=== PATIENT | female | born 2005 | race Caucasian/White ===

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

== ENCOUNTER 2025-04-18 16:38 | Emergency (ER) | payer OTHER, SELFPAY ==
[2025-04-18 16:45] VITALS: BP 135/73; PULSE 85; RESP 16; TEMP 36.8; O2SAT 97
--- NOTE | 2025-04-18 17:00 | ED_ITS ---
HPI - General Adult General Chief complaint: Ear Stated complaint: Shortness of Breath/Dizziness Time Seen by Provider: 04/18/25 17:00 Source: patient Mode of arrival: ambulatory Limitations: no limitations History of Present Illness HPI narrative: 19 y/o female presented for c/o runny nose, 'shortness of breath,' and occasional dizziness. Endorses mid chest pressure with deep breaths. Also reports left ear pain. Onset 3 days. Symptoms worse last night, better today but she missed work. Denies palpitations, wheezing, cough, n/v/d/f/c. No meds for symptoms. Related Data Home Medications ?Medication ?Instructions ?Recorded ?Confirmed ?Last Taken ?Type No Home Medications 12/09/19 12/09/19 Unknown History Allergies Allergy/AdvReac Type Severity Reaction Status Date / Time No Known Allergies Allergy Verified 12/09/19 18:43 Review of Systems Review of Systems: per HPI All systems reviewed & are unremarkable except as noted in HPI and below PMFSH Comments At time of signature, I have reviewed and agree with nursing past medical, surgical, social and family history unless otherwise noted. Please see nursing chart for further information. There is no relevant family history pertinent to the presenting complaint Exam Narrative: GENERAL: Well-appearing EYES: EOMI. No redness or drainage. Conjunctivae normal. ENT: Mucous membranes pink and moist. rhinorrhea. TMs normal bilaterally. Throat normal. Uvula midline. NECK: Normal AROM. CHEST: No respiratory distress. Clear to auscultation. Left sternal border tenderness with palpation. HEART: Regular rate and rhythm. No murmur appreciated. Normal peripheral pulses. ABDOMEN: Soft, nontender, nondistended, normal active bowel sounds. SKIN: Warm, dry, no rash. Capillary refill normal. Normal skin turgor. NEURO: No focal deficits. Alert and oriented x3. Gait steady. PSYCH: Normal affect. Course Course Emergency Course: Patient is aware of diagnosis, understands and agrees to treatment plan. Anticipatory guidance given. Patient agrees to follow-up as directed and is aware of reasons to seek care at the emergency department. Portions of this record may have been created with voice recognition software Level of Care: Express Care Visit Vital Signs Vital signs: Vital Signs Temperature 98.3 F 04/18/25 16:45 Pulse Rate 85 04/18/25 16:45 Respiratory Rate 16 04/18/25 16:45 Blood Pressure 135/73 04/18/25 16:45 Pulse Oximetry 97 04/18/25 16:45 Oxygen Delivery Room Air 04/18/25 16:45 Temperature 98.3 F 04/18/25 16:45 Pulse Rate 85 04/18/25 16:45 Respiratory Rate 16 04/18/25 16:45 Blood Pressure 135/73 04/18/25 16:45 Pulse Oximetry 97 04/18/25 16:45 Oxygen Delivery Room Air 04/18/25 16:45 Medical Decision Making MDM Narrative Medical decision making narrative: Discussed physical exam findings and possible etiologies. Pt describes shortness of breath, dizziness, and hot flashes; offered ER transfer. Pt declines stating she is better today than yesterday. Advised supportive measures and signs/symptoms to go to the ER. Pt is appropriate for outpt treatment and f/u. Differential Diagnosis Differential Diagnosis: Influenza, covid, sinusitis, OM, strep pharyngitis, URI, Angioedema, perforation, asthma, pneumonia, PE, tension pneumothorax, cardiac tamponade GA, pericarditis, pleural effusion, CHF, bronchitis, cardiac arrhythmia Vital Signs Vital Signs: Vital Signs Temperature 98.3 F 04/18/25 16:45 Pulse Rate 85 04/18/25 16:45 Respiratory Rate 16 04/18/25 16:45 Blood Pressure 135/73 04/18/25 16:45 Pulse Oximetry 97 04/18/25 16:45 Oxygen Delivery Room Air 04/18/25 16:45 Temperature 98.3 F 04/18/25 16:45 Pulse Rate 85 04/18/25 16:45 Respiratory Rate 16 04/18/25 16:45 Blood Pressure 135/73 04/18/25 16:45 Pulse Oximetry 97 04/18/25 16:45 Oxygen Delivery Room Air 04/18/25 16:45 reviewed Discharge Plan Discharge Clinical Impression: Upper respiratory infection Patient Disposition: Home Condition: Stable Instructions: Antibiotic Form, Upper Respiratory Infection (ED) Additional Instructions: Recommendations: Flonase spray and Zyrtec (or Claritin/April) if you have runny nose or congestion Tylenol every 8 hours as needed for pain Symptomatic treatment includes: rest, increase fluids, and increase humidity of the air at home. Follow up with your primary care provider in 1 week. Go to the ER for worsening symptoms or concerns. Patient Language: Setswana Prescriptions: No Action No Home Medications Follow-up/Referrals: PHYSICIAN,[facility] [Primary Care Provider] - Time of Disposition: 17:14
== END 2025-04-18 17:18 | disposition home or self-care (01) ==
PROVIDERS: Emergency Provider Nurse Practitioner Family
DX: J06.9 Acute upper respiratory infection, unspecified (principal)
CPT/HCPCS: 99211; G0463